=== PATIENT | male | born 1965 | race Caucasian/White ===

== ENCOUNTER 2019-03-20 17:39 | Emergency (ER) | payer MEDICAID ==
[~2019-03-20] VITALS: Ht 180.3 cm; Wt 59.0 kg
[2019-03-20 17:51] VITALS: BP 133/82
[2019-03-20] MEDS ORDERED: SODIUM CHLORIDE 0.9% 1,000 ML IV ONE (19:18)
== END 2019-03-20 19:59 | disposition left against medical advice (07) ==
LOC: ER 17:46
DX: K40.90 Unilateral inguinal hernia, without obstruction or gangrene, not specified as recurrent (principal); Z53.21 Procedure and treatment not carried out due to patient leaving prior to being seen by health care provider
CPT/HCPCS: 93005